=== PATIENT | male | born 1960 | race Caucasian/White ===

== ENCOUNTER 2020-04-29 15:33 | Outpatient (CLI) | payer OTHER, SELFPAY | END 2020-04-29 15:34 | disposition home or self-care (01) | LOC: ANHCOVIDVC 15:33 | PROVIDERS: PCP Family Medicine | DX: Z23 Encounter for immunization (principal) | CPT/HCPCS: 0001A; 91300 ==

== ENCOUNTER 2020-05-20 15:29 | Outpatient (CLI) | payer OTHER, SELFPAY | END 2020-05-20 15:30 | disposition home or self-care (01) | LOC: ANHCOVIDVC 15:29 | PROVIDERS: PCP Family Medicine | DX: Z23 Encounter for immunization (principal) | CPT/HCPCS: 0002A; 91300 ==

== ENCOUNTER → 2020-08-19 10:29 | Outpatient (CLI) | payer OTHER, SELFPAY ==
--- NOTE | ~2020-08-19 | XR_ITS ---
XR shoulder RT min 2V DATE: 08/19/2020 10:49 INDICATION: Right shoulder pain TECHNIQUE: 4 views COMPARISON: None FINDINGS: No fracture, dislocation, periosteal reaction or bone destruction or abnormal soft tissue c alcification. Incidentally noted is an azygos lobe. IMPRESSION: No significant abnormality of right shoulder Reviewed, dictated and finalized at location A.
== END ==
PROVIDERS: PCP Family Medicine; Visit Provider Family Medicine
DX: M25.511 Pain in right shoulder (principal)
CPT/HCPCS: 73030

== ENCOUNTER 2022-01-22 13:13 | Emergency (ER) | payer OTHER, SELFPAY ==
[2022-01-22 13:24] VITALS: BP 128/77; PULSE 88; RESP 16; TEMP 37.2; O2SAT 98
--- NOTE | 2022-01-22 13:43 | ED.EAR ---
HPI - Ear Problem General Chief complaint: Ear Stated complaint: rt ear clogged Time Seen by Provider: 01/22/22 13:44 Source: patient, RN notes reviewed and old records reviewed Mode of arrival: ambulatory Limitations: no limitations History of Present Illness HPI Narrative: 61-year-old male who presents to [facility] with complaints of his right ear feeling clogged. He has put Debrox and also some hydrogen peroxide in his ear with no improvement. He reports having problems with his ears feeling clogged for several months.He has appointment with ENT in February on the but doesn't feel he can wait that long MD Complaint: decreased hearing and other ( right ear feels clogged) Location: right ear Associated symptoms ear: decreased hearing Treatment prior to arrival: other (peroxide and debrox) Related Data Home Medications Medication Instructions Recorded Confirmed No Home Medications 09/21/21 01/22/22 Allergies Allergy/AdvReac Type Severity Reaction Status Date / Time levocetirizine Allergy Unknown Unknown Verified 01/22/22 13:32 Review of Systems Review of Systems: CONSTITUTIONAL: Denies fever, chills, or sweats. EYES: Denies visual changes, redness, or discharge. ENT: Denies rhinorrhea, congestion, sore throat, right ear feels clogged with decreased hearing. CARDIOVASCULAR: Denies chest pain, palpitations, or edema RESPIRATORY: Denies cough or dyspnea. GASTROINTESTINAL: Denies abdominal pain, nausea, vomiting, or diarrhea. GENITOURINARY: Denies dysuria or hematuria. SKIN: Denies rash or itching. MUSCULOSKELETAL: Denies back pain, joint pain, or myalgia. NEUROLOGIC: Denies headache, numbness, or weakness. PSYCHIATRIC: Denies anxiety or depression. All systems reviewed & are unremarkable except as noted in HPI and below PMFSH Past Medical History Medical History Acute conjunctivitis, right eye BMI 27.0-27.9,adult BMI 28.0-28.9,adult Chronic right shoulder pain Colon cancer screening Cologuard 10/09/2018 was negative with recheck in 3 years. Cologuard screening through insurance 2019 reportedly normal. Recheck in 3 years. COVID-19 (05/03/21) fully vaccinated with 3 doses with positive COVID test 05/04/2021 Encounter for prostate cancer screening BSA 1.39 on 09/23/2021. Encounter for wellness examination in adult Mixed hyperlipidemia Total cholesterol 225, triglycerides 99, HDL 54, LDL 150 on 09/23/2021. Neoplasm of skin of face (03/25/21) Biopsy reveals inflamed pigmented seborrheic keratosis Osteoarthritis of both knees Overweight (BMI 25.0-29.9) Pharyngitis (05/06/21) Seasonal allergic rhinitis Seasonal allergies Family History Family History Sibling Malignant neoplasm of prostate Mother Patient's mother is , Onset Age: 68 Family history of cardiovascular disease Grandparent Acute myocardial infarction, Onset Age: 68 Other Hypertension Social History Social History Smoking status: Never smoker Alcohol intake: current Drinks per week: 2 Substance use: never Substance use type: does not use Comments At time of signature, agree with nursing past medical, surgical, social and family history. There is no relevant family history pertinent to the presenting complaint Exam Narrative: GENERAL: Well-appearing, well-nourished, and in no acute distress. HEAD: Normocephalic, atraumatic. EYES: PERRLA and EOMI. ENT: Nares clear, no rhinorrhea or epistaxis. Mucous membranes moist.Right ear impacted with dark wax see procedure note,left TM normal with good light reflex, throat pink with no lesions or swelling NECK: Supple. no lymphadenopathy CHEST: Clear to auscultation. No respiratory distress.SAO2 98% on room air HEART: Regular rate and rhythm. No murmur heard. Normal peripheral pulses. ABDOMEN: Soft,
== END 2022-01-22 14:13 | disposition home or self-care (01) ==
PROVIDERS: Emergency Provider Registered Nurse; PCP Family Medicine
DX: H61.21 Impacted cerumen, right ear (principal); E78.2 Mixed hyperlipidemia; M17.0 Bilateral primary osteoarthritis of knee; Z86.16 Personal history of COVID-19; Z85.828 Personal history of other malignant neoplasm of skin
CPT/HCPCS: 69210; 99212; G0463